=== PATIENT | female | born 1965 | race Caucasian/White ===

== ENCOUNTER 2018-10-08 10:11 | Outpatient (REF) | payer MEDICAID, SELFPAY ==
--- NOTE | 2018-10-08 09:30 | PAPFT_PTH ---
PATIENT: Alicia Gimenez LOC: [facility] U#:[id number] AGE/SX: 53/F ROOM: RE10/08/[address]: ABRAM Senior : 1965 BED: DIS: 10/08/2018 SPEC #: [id number] RECD: 10/08/18 12:43 STATUS: ERNA REJean-Pierre #: [id number] SELAM: 10/08/18 09:[address]: Trixie Santos DEPT: [facility] Cytology RECD BY: Romelia Cabrera ENTERED: 10/08/18 12:44 SP TYPE: PAPFT MARGARETHHR DR: Edward Kurtz DO Tissues: 1 - CX/ENDOCX FOR PAP SMEARS Procedures: PAP THIN PREP/UVM Screening HPV DNA PROBE Comments: [id number]
== END 2018-10-08 10:31 ==
LOC: LBN 10:11
PROVIDERS: PCP Family Medicine; Visit Provider Nurse Practitioner Family
DX: Z12.4 Encounter for screening for malignant neoplasm of cervix (principal); Z11.51 Encounter for screening for human papillomavirus (HPV)
CPT/HCPCS: 88142; 87624

== ENCOUNTER 2018-11-29 00:29 | Outpatient (CLI) | payer MEDICAID, SELFPAY ==
--- NOTE | 2018-11-29 07:44 | DI.MRI_ITS ---
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 Sagittal T 2, axial T 2, axial diffusion weighted, axial FLAIR, axial T 1 and axial GRE pulse sequences were performed. 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 This finding unchanged when compared with the previous examination. The brain is otherwise unremarkable with no evidence of a mass, hemorrhage, region of edema or fluid collection. There are no regions of restricted diffusion. A normal flow void is identified in the visualized portions of the [place] of [place] and cerebral vessels. SUMMARY: A pineal cyst has a maximal diameter today of approximately 8 mm with no appreciable interval change when compared with the prior study of 02/23/16.
== END 2018-11-29 00:49 ==
PROVIDERS: PCP Family Medicine; Visit Provider Family Medicine
DX: D35.4 Benign neoplasm of pineal gland (principal)
CPT/HCPCS: 70551

== ENCOUNTER 2018-11-29 00:29 | Outpatient (CLI) | payer MEDICAID, SELFPAY ==
--- NOTE | 2018-11-29 11:17 | DI.MAMMO_ITS ---
SYMPTOM/DIAGNOSIS: SCREENING, Z12.31 BILATERAL SCREENING MAMMOGRAM: Mammograms were interpreted according to the usual protocol including computer analysis with CAD system, tomosynthesis and C view imaging. Comparison is made with exams from the [facility] dated 2012 through 2016. The breasts are composed of heterogeneously dense fibroglandular tissue, breast density Category C. No suspicious masses or suspicious microcalcifications are seen. There is motion on the left CC view. The patient should return for a repeat left CC view at no additional charge. IMPRESSION: Right breast Category 1 negative. Category C. Left breast category 0. SA ASSESSMENT OF FINDINGS: Incomplete: Needs additional imaging evaluation. Category 0. Patient will receive a letter notifying them of these results. Bi-RADS category C. The breasts are heterogeneously dense, which may obscure small masses.
== END 2018-11-29 00:49 ==
PROVIDERS: PCP Family Medicine; Visit Provider Nurse Practitioner Family
DX: Z12.31 Encounter for screening mammogram for malignant neoplasm of breast (principal); R92.8 Other abnormal and inconclusive findings on diagnostic imaging of breast
CPT/HCPCS: 77063; 77067

== ENCOUNTER 2018-12-06 00:46 | Outpatient (CLI) | payer MEDICAID, SELFPAY ==
--- NOTE | 2018-12-06 10:18 | DI.MAMMO_ITS ---
SYMPTOM/DIAGNOSIS: F/U MAMMO, REPEAT VIEW FOR MOTION REPEAT LEFT CC VIEW: Additional images are interpreted according to the usual protocol including tomosynthesis and 2D imaging. The patient returned for repeat left MLO view due to motion on the initial exam. The repeat view shows no evidence of motion. The breasts are composed of heterogeneously dense fibroglandular tissue. No suspicious masses or suspicious microcalcifications are seen. IMPRESSION: Category 1C, negative mammogram. Yearly screening mammography is recommended. [facility] ASSESSMENT OF FINDINGS: Negative. Category 1. Patient will receive a letter notifying them of these results. Bi-RADS category C. The breasts are heterogeneously dense, which may obscure small masses.
== END 2018-12-06 01:06 ==
PROVIDERS: PCP Family Medicine; Visit Provider Nurse Practitioner Family
DX: Z12.31 Encounter for screening mammogram for malignant neoplasm of breast (principal); R92.8 Other abnormal and inconclusive findings on diagnostic imaging of breast; N64.59 Other signs and symptoms in breast
CPT/HCPCS: 77063; 77067

== ENCOUNTER 2018-12-10 09:56 | Day surgery (SDC) | payer MEDICAID, SELFPAY ==
--- NOTE | 2018-12-10 06:35 | W.COLOREPORT ---
Date of service: 12/10/18 Time of Service: 11:50 Colonoscopy Report Date of procedure: 12/10/18 Pre-op diagnosis general: Colon Cancer Screening Post-op diagnosis procedure note: other (Rectal polyps) Procedure: Colonoscopy with polypectomy by cold forceps Surgeon: Khalida Gordon Anesthesia proc note operative: MAC (Asif Patel,BLACK/ ASA 2) Estimated blood loss (mL): 5 Pathology: other (rectal polyps) Complications: None Disposition: same day Indications: Mrs. Gimenez is a pleasant 53 year old female who was seen in the office for a screening colonoscopy. She had a colonoscopy more than 20 years ago for some GI issues which was normal. Risks, benefits and complications have been reviewed. Complications include but are not limited to bleeding, pain, perforation, missed small lesion/polyp, sore throat, aspiration and adverse reaction to the medications. Questions were entertained and answered to their satisfaction and they wished to proceed. No guarantees were given or implied. Prep: Miralax/Dulcolax Procedure Start Time: 11:50 Procedure End Time: 12:19 Retraction Time: 19 minutes Findings: 3 small rectal polyps Procedure Description: After informed consent was obtained the patient was taken to the procedure room and placed in a left decubitous position. Monitors were applied and a time out was done. The patients name, date of , procedure, allergies to medications and metal in their body was reviewed. The patient was then sedated. Once sedated and comfortable a rectal exam was done. External exam was normal. Internal exam revealed a normal sphincter tone and no palpable masses. The scope was then introduced and retro-flexed. no internal hemorrhoids were identified. The scope was then advanced to the cecum without difficulty. The TI and appendiceal orifice were identified. The prep was adequate. The scope was then slowly retracted over 19 minutes back into the rectum. Polyps were removed in the rectum with cold forceps. The scope was removed and the patient was woken up and taken back to Same day surgery in stable condition. The patient tolerated the procedure well and there were no immediate complications. Follow up: The patient should follow up in 3-5 years unless they develop changes in bowel habits or other new gastrointestinal complaints.
--- NOTE | 2018-12-10 06:37 | W.PM.DSUDISC ---
Discharge Plan Disposition Patient Disposition: HOME Condition: Good Discharge Details Reason For Visit: Colon Cancer Screening Attending Provider: Khalida Gordon Primary Care Provider: Edward Kurtz Home Meds and New Rx's Prescriptions: Continued citalopram 20 mg tablet 20 mg PO DAILY RF: 0 estradiol [Estrace] 0.01 % (0.1 mg/gram) cream 1 g VG .COMPLEX Qty: 42.5 RF: 4 latanoprost [Xalatan] 0.005 % drops 1 drp OP DAILY RF: 0 bupropion HCl 300 mg tablet extended release 24 hr 300 mg PO QAM RF: 0 quetiapine [Seroquel] 300 mg tablet 150 - 450 mg PO HS RF: 0 trazodone 50 mg tablet 50 mg PO HS PRN RF: 0 Symbicort 160-4.5 mcg/actuation HFA aerosol inhaler 1 puff IH BID Qty: 10.2 RF: 12 Proventil HFA 90 mcg/actuation HFA aerosol inhaler 2 puff IH Q4H PRN (Reason: shortness of breath or wheezing) Qty: 6.7 RF: 12 Discontinued bisacodyl [Dulcolax (bisacodyl)] 5 mg tablet,delayed release (DR/EC) 5 mg PO ONCE Qty: 4 RF: 0 polyethylene glycol 3350 17 gram/dose powder 255 g PO ONCE Qty: 255 RF: 0 Discharge Instructions Instructions: Colonoscopy (DC), Colorectal Polyps (DC) Additional Instructions: Findings: 3 polyps Follow up: 3-5 years Please call if you develop: fevers >101.5 Nausea or Vomiting Abdominal pain that is not transient DAY SURGERY UNIT POST COLONOSCOPY INSTRUCTIONS 1. Because there will be medication in your system for the next 24 hours, you may feel a little sleepy. Your coordination will be affected. Therefore: a. Do not drive or operate dangerous equipment for 24 hours. b. Do not drink alcohol beverages for 24 hours (not even beer). c. Plan to go home and rest for the day. 2. Generally there are no restrictions on your activity after a day or so has gone by, but you may feel a bit fatigued for a few days. 3 After you arrive home you may have a light meal and return to a normal diet as you can tolerate it without feeling sick to your stomach. 4. After surgery, you may feel pain or discomfort. This should be only transient, but if it persists please contact your doctor. 5. If there are any questions regarding the findings of your procedure, please feel free to contact your doctor. 6. If you are unable to contact your doctor with a problem, contact the hospital at [phone]. 7. Continue all your regular medications unless directed otherwise. I understand the above instructions and have no questions. Signature of Patient or Responsible Adult Escort Date/Time Name of Responsible Adult Escort Signature of Nurse Date/Time Activity:: Activity as Tolerated Diet:: As Tolerated Discharge Orders Discharge Orders: Discharge Order (Routine); Ordered 12/10/18 Ordered By: Khalida Gordon DS: Diagnosis Discharge Diagnosis (1) S/P colonoscopy: Status: Acute (2) Colorectal polyp detected on colonoscopy: Status: Acute
[2018-12-10 10:21] VITALS: BP 128/92; PULSE 79; RESP 18; TEMP 36.4; O2SAT 97
[2018-12-10] MEDS: Lactated Ringers 1,000 ML 80 ML IV (10:40)
--- NOTE | 2018-12-10 12:16 | BOWEL_PTH ---
PATIENT: Alicia Gimenez LOC: [facility] U#:[id number] AGE/SX: 53/F ROOM: RE12/10/[address]: Khalida Gordon MD : 1965 BED: DIS: 12/10/2018 SPEC #: [id number] RECD: 12/10/18 17:55 STATUS: ERNA REQ #: [id number] SELAM: 12/10/18 12:[address]: Khalida Gordon DEPT: Surgical Specimen RECD BY: Romelia Cabrera ENTERED: 12/10/18 17:56 SP TYPE: Bowel OTHR DR: Edward Kurtz DO Tissues: 1 - BIOPSY BOWEL Procedures: GROSS AND MICRO LEVEL 4 Comments: [id number]
[2018-12-10 13:10] VITALS: BP 151/95; PULSE 71; RESP 16; TEMP 36.6; O2SAT 100
== END 2018-12-10 13:20 | disposition home or self-care (01) ==
LOC: SUR 09:56
PROVIDERS: PCP Family Medicine; Visit Provider Surgery
PROC: 0DJD8ZZ Inspection of Lower Intestinal Tract, Via Natural or Artificial Opening Endoscopic (ICD-10-PCS; CPT 45378; principal; 2018-12-10 11:30)
DX: Z12.11 Encounter for screening for malignant neoplasm of colon (principal); D12.5 Benign neoplasm of sigmoid colon; K63.5 Polyp of colon
CPT/HCPCS: 45380; 88305; J2250

== ENCOUNTER 2019-01-07 23:25 | Emergency (ER) | payer MEDICAID, SELFPAY ==
[2019-01-07 23:28] VITALS: BP 161/128; PULSE 77; RESP 20; TEMP 36.2; O2SAT 97
[2019-01-07 23:37] VITALS: BP 173/97
[2019-01-07 23:53] VITALS: BP 172/77
[2019-01-07 23:58] VITALS: BP 125/78; PULSE 74; O2SAT 97
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
[2019-01-08] MEDS: Prochlorperazine 10 MG TAB 20 MG PO (00:23)
== END 2019-01-08 00:30 | disposition home or self-care (01) ==
PROVIDERS: Emergency Provider Physician Assistant; PCP Family Medicine
DX: F10.10 Alcohol abuse, uncomplicated (principal); R11.2 Nausea with vomiting, unspecified; F41.8 Other specified anxiety disorders
CPT/HCPCS: 99283

== ENCOUNTER 2019-02-15 02:03 | Outpatient (CLI) | payer MEDICAID, SELFPAY ==
[2019-02-15] MEDS: Albuterol HFA 18 GM 200 PUFF INH IH (15:39)
[2019-02-15] MEDS: Inhaler, Assist Device 1 EACH MC (15:39)
--- NOTE | 2019-02-25 14:43 | PFT_ITS ---
PULMONARY FUNCTION TEST REPORT DATE OF SERVICE: February 15, 2019 REQUESTING PROVIDER: Sonya Piedra N.P. Spirometry shows mild obstructive airways disease with significant bronchodilator response. Lung volumes show no evidence of restriction. There is mild to moderate hyperinflation and air trapping. Diffusion capacity elevated. Airways resistance mildly elevated. IMPRESSION: Mild obstructive airways disease with very significant bronchodilator response. This is associated with mild to moderate hyperinflation and air trapping and elevated diffusion capacity. This constellation of findings can be seen in asthma. Clinical correlation recommended. ARUNA/ledy D/
== END 2019-02-15 02:23 ==
PROVIDERS: PCP Family Medicine; Visit Provider Nurse Practitioner
DX: J45.909 Unspecified asthma, uncomplicated (principal); Z87.891 Personal history of nicotine dependence
CPT/HCPCS: 94060; 94150; 94726; 94729

== ENCOUNTER 2019-10-21 10:43 | Outpatient (CLI) | payer MEDICAID, SELFPAY ==
--- NOTE | 2019-10-21 10:28 | DI.RAD_ITS ---
EXAM: XR CHEST 2V PA LATERAL CLINICAL HISTORY: Clinical diagnosis of influenza, r/o pneumonia, J11.1 TECHNIQUE: 2D digital imaging was performed. COMPARISON: No exams were available for comparison FINDINGS: The cardiac and mediastinal contours have a normal appearance. The lungs are well inflated and clear . No infiltrate, effusion or pneumothorax is seen. No spine or rib fracture is identified. IMPRESSION: Negative chest x-ray.
== END 2019-10-21 11:03 ==
PROVIDERS: PCP Family Medicine; Visit Provider Family Medicine
DX: J11.1 Influenza due to unidentified influenza virus with other respiratory manifestations (principal)
CPT/HCPCS: 71046

== ENCOUNTER 2020-04-20 15:33 | Outpatient (REF) | payer MEDICAID, SELFPAY ==
[2020-04-20 20:54] LABS: ALT 40 U/L (14-59); AST 22 U/L (15-37); Albumin 4.1 g/dL (3.4-5.0); Alkaline Phosphatase 112 U/L (46-116); Anion Gap 8.6 mmol/L (3-11); BUN 11 mg/dL (7-18); Bilirubin, Total 0.6 mg/dL (0.2-1.0); CO2 28.4 mmol/L (21.0-32.0); CREATININE 0.84 mg/dL (0.55-1.02); Calcium 9.1 mg/dL (8.5-10.1); Calculated LDL 130 mg/dL (<100); Chloride 102 mmol/L (98-107); Cholesterol 235 mg/dL (<200); Glucose 86 mg/dL (74-106); HDL Cholesterol 94 mg/dL (40-60); Potassium 3.7 mmol/L (3.5-5.1); Sodium 139 mmol/L (136-145); Total Protein 7.5 g/dL (6.4-8.2); Triglyceride 57 mg/dL (<150)
== END 2020-04-20 15:53 ==
LOC: LBN 15:33
PROVIDERS: PCP Family Medicine; Visit Provider Family Medicine
DX: Z13.220 Encounter for screening for lipoid disorders (principal)
CPT/HCPCS: 80053; 80061

== ENCOUNTER 2020-06-08 09:09 | Outpatient (CLI) | payer MEDICAID, SELFPAY ==
[2020-06-10 08:53] LABS: SARS-CoV-2 RNA Undetected (Undetected); SARS-CoV-2 Specimen Source Nasopharynx
== END 2020-06-08 09:29 ==
PROVIDERS: PCP Family Medicine; Visit Provider Student in an Organized Health Care Education/Training Program
DX: Z20.828 Contact with and (suspected) exposure to other viral communicable diseases (principal)
CPT/HCPCS: U0003

== ENCOUNTER 2020-09-18 04:16 | Outpatient (CLI) | payer MEDICAID, SELFPAY ==
[2020-09-20 10:04] LABS: SARS-CoV-2 RNA Not Detected (NotDetected); SARS-CoV-2 RNA Source Nasal/Nares
== END 2020-09-18 04:36 ==
PROVIDERS: PCP Family Medicine; Visit Provider Student in an Organized Health Care Education/Training Program
DX: Z11.59 Encounter for screening for other viral diseases (principal); Z01.818 Encounter for other preprocedural examination
CPT/HCPCS: U0003

== ENCOUNTER 2020-09-22 06:15 | Day surgery (SDC) | payer MEDICAID, SELFPAY ==
[2020-09-22 06:20] VITALS: BP 117/72; PULSE 82; RESP 18; TEMP 36.6; O2SAT 97
[2020-09-22] MEDS: Lactated Ringers 1,000 ML 80 ML IV (06:54)
--- NOTE | 2020-09-22 07:07 | PDOC.DSDIS_ITS ---
Discharge Plan Disposition Patient Disposition: HOME Condition: Good Discharge Details Reason For Visit: Left carpal tunnel syndrome Attending Provider: Mook Johnson Primary Care Provider: Edward Kurtz Home Meds and New Rx's Prescriptions: New acetaminophen 500 mg tablet 500 mg PO Q6H PRN (Reason: pain) Qty: 60 RF: 2 ibuprofen 600 mg tablet 600 mg PO TID PRN (Reason: pain) Qty: 60 RF: 2 hydrocodone-acetaminophen 5-325 mg tablet 1 tab PO Q6H PRN (Reason: severe pain) Qty: 4 RF: 0 Continued citalopram 20 mg tablet 20 mg PO DAILY RF: 0 albuterol sulfate [ProAir HFA] 90 mcg/actuation HFA aerosol inhaler 2 puff IH Q6H PRN (Reason: shortness of breath or wheezing) Qty: 8.5 RF: 6 latanoprost [Xalatan] 0.005 % drops 1 drp OP DAILY RF: 0 estradiol [Estrace] 0.01 % (0.1 mg/gram) cream 1 g VG .COMPLEX Qty: 42.5 RF: 4 Symbicort 160-4.5 mcg/actuation HFA aerosol inhaler 1 puff IH BID Qty: 10.2 RF: 12 bupropion HCl 300 mg tablet extended release 24 hr See Rx Instructions PO QAM RF: 0 quetiapine [Seroquel] 300 mg tablet See Rx Instructions PO QHS RF: 0 Discharge Instructions Stand Alone Forms: [place] Release Referrals: Mook Johnson MD [ [facility] ST[facility]FF PHYSICIAN] - Activity:: Elevate Remove Dressings/Wound Care:: 72 hours Shower/Bathe:: 72 hours Diet:: As Tolerated Discharge Orders Discharge Orders: Discharge Order (Routine); Ordered 09/22/20 Ordered By: Geeta Mello DS: Diagnosis Discharge Diagnosis (1) Left carpal tunnel syndrome: Status: Acute
[2020-09-22] MEDS: ceFAZolin 2 GM/50 ML BAG IVPB (07:24)
[2020-09-22] MEDS: Sodium Bicarbonate 50 MEQ/50 ML VIAL (07:35)
[2020-09-22 08:10] VITALS: BP 114/74; PULSE 84; RESP 18; TEMP 36.7; O2SAT 94
--- NOTE | 2020-09-22 09:39 | ROE_ITS ---
Date of service: 09/22/20 Time of Service: 07:39 Operative Note Operative Note DATE OF PROCEDURE: 09/22/20 PRE-OP DIAGNOSIS: Left Carpal Tunnel Syndrome POST-OP DIAGNOSIS: same PROCEDURE: Left Endoscopic Carpal Tunnel Release SURGEON: Mook Johnson ANESTHESIA: MAC ESTIMATED BLOOD LOSS: 0 PATHOLOGY: none sent TOURNIQUET TIME: 6 COMPLICATIONS: None Patient was transported to: same day Patient's condition: stable Indications: I have seen Alicia in clinic for symptoms of carpal tunnel syndrome. The numbness, tingling, and pain limited function. Clinical exam findings with nerve conduction tests confirmed the diagnosis of carpal tunnel syndrome. Nonoperative measures such as bracing, time, activity modifications had been tried but disability and pain persisted. I discussed carpal tunnel release with the patient. I reviewed the risks of the procedure to include, but not limited to, bleeding, infection, pain, stiffness, incomplete release, damage to nerves or vessels, persistent numbness, recurrence. Despite these risks, the patient elected to proceed. Findings: There was tightened carpal tunnel. This was dilated and released successfully with the endoscopic with increased space within the tunnel. The antebrachial fascia was released proximally freeing the median nerve at the wrist. Procedure Description: Alicia was greeted in the preoperative holding area where the correct side was identified and marked. The consent was reviewed with the patient and signed. The history and physical was updated. All questions were answered. She was taken back to the operating room. The patient was placed into the supine position on the operating room table with the left arm on an arm board. A nonsterile tourniquet was placed high onto the arm. All bony prominences were well padded. Prophylactic antibiotics in the form of Cefazolin were administered. The left arm was then prepped with Chloraprep and draped in a standard fashion with stockinette and extremity drape. A timeout to confirm correct identity, side and site, procedure, allergies, anesthesia, and medical concerns was performed. The surgical site was marked in the volar wrist creases in line with the radial border of the fourth ray. This area was anesthetized with approximately 6cc of 1% Lidocaine. The limb was then exsanguinated with an Esmarch. The skin was incised with a 15 blade, approximately 1cm. The skin only was cut and the deeper tissue was dissected bluntly with a tenotomy scissor, avoiding passing nerve and venous structures. The fascia was penetrated and opened bluntly. A two-prong skin hook was placed under this proximal fascial edge. A series of hamate finders were used to identify and dilate the carpal tunnel. Synovial elevator was used to free synovial attachments to the underside of the transverse carpal ligament. My thumb was kept in the palm to valarie the distal extent of the carpal tunnel and correctly position the hand. The Microaire endoscope was inserted without difficulty and without resistance. Excellent v isualization showed horizontally running fibers of the transverse carpal ligament (TCL). The distal extent of the TCL was visualized and the end of the scope palpated with the thumb. The blade was elevated and withdrawn from distal to proximal. The TCL was split into two flaps. The endoscope was reinserted to confirm complete release and any remnant ligament was incised. The scope was withdrawn and the proximal aspect of the carpal tunnel was grossly inspected and appeared release with the median nerve visible. The antebrachial fascia at the level of the wrist was then freed from the overlying skin and then the underlying median nerve with blunt dissection. This was transected longitudinally for about 3cm proximal to the wrist incision. The wound was then irrigated with easy flow of irrigant distally and proximally. The incision was closed with a single 4-0 Nylon suture. The wound was dressed with Xeroform, Gauze, Kerlix and Jason. The tourniquet was deflated with the initial dressing and held with some pressure. Blood flow returned easily to all digits with capillary refill less than 2 seconds. The patient tolerated the procedure well and was returned to the Same Day Surgery area in a stable condition suffering no known complication.
== END 2020-09-22 08:25 | disposition home or self-care (01) ==
PROVIDERS: PCP Family Medicine; Visit Provider Student in an Organized Health Care Education/Training Program
PROC: 01N54ZZ Release Median Nerve, Percutaneous Endoscopic Approach (ICD-10-PCS; CPT 29848; principal; 2020-09-22 07:30)
DX: G56.02 Carpal tunnel syndrome, left upper limb (principal)
CPT/HCPCS: 29848; J0690; J2001; L3650

== ENCOUNTER 2020-12-05 10:04 | Emergency (ER) | payer MEDICAID, SELFPAY ==
[2020-12-05 10:07] VITALS: BP 187/88; PULSE 82; RESP 20; TEMP 36.6; O2SAT 99
--- NOTE | 2020-12-05 10:15 | DI.RAD_ITS ---
EXAM: XR RIBS RT W PA LAT CHEST CLINICAL HISTORY: R anterior rib pain TECHNIQUE: 2D digital imaging was performed. COMPARISON: CR XR CHEST 2V PA LATERAL from 10/21/2019 FINDINGS: Heart size is normal. The lungs appear clear. No pneumothorax is seen. Three views of the right r ibs were performed. The lower ribs are suboptimally penetrated. No fractures are visible. IMPRESSION: Negative chest and right ribs.
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
--- NOTE | 2020-12-05 10:48 | DI.VRAD_ITS ---
PROCEDURE INFORMATION: Exam: XR Right Ribs Exam date and time: 12/05/2020 10:21 AM Age: 55 years old Clinical indication: Other: RT ant rib pain. Marked with bb TECHNIQUE: Imaging protocol: XR Right ribs. Views: 2 views. COMPARISON: CR XR CHEST 2V PA LATERAL 10/21/2019 10:23 AM FINDINGS: Bones/joints: Normal. Soft tissues: Normal. IMPRESSION: No acute findings. PROCEDURE INFORMATION: Exam: XR Chest, 2 Views Exam date and time: 12/05/2020 10:21 AM Age: 55 years old Clinical indication: Other: RT ant rib pain. Marked with bb TECHNIQUE: Imaging protocol: XR of the chest Views: 2 views. COMPARISON: CR XR CHEST 2V PA LATERAL 10/21/2019 10:23 AM FINDINGS: Lungs: Unremarkable. No consolidation. Pleural spaces: Unremarkable. No pleural effusion. No pneumothorax. Heart/Mediastinum: Unremarkable. No cardiomegaly. Bones/joints: Unremarkable. IMPRESSION: No acute findings. Dictated and Authenticated by: Fidel Nelson MD. Ordering:LEMUEL Almeida MD
== END 2020-12-05 10:58 | disposition home or self-care (01) ==
PROVIDERS: Emergency Provider Emergency Medicine; PCP Family Medicine
DX: S20.211A Contusion of right front wall of thorax, initial encounter (principal); V00.311A Fall from snowboard, initial encounter; Y93.23 Activity, snow (alpine) (downhill) skiing, snowboarding, sledding, tobogganing and snow tubing
CPT/HCPCS: 99283; 71046; 71100

== ENCOUNTER 2021-03-02 10:33 | Outpatient (REF) | payer MEDICAID, SELFPAY ==
--- NOTE | 2021-03-02 09:40 | PAPFT_PTH ---
PATIENT: Alicia Gimenez LOC: Re U#:[id number] AGE/SX: 55/F ROOM: RE03/02/[address]: ABRAM Senior : 1965 BED: DIS: 03/02/2021 SPEC #: [id number] RECD: 03/02/21 13:03 STATUS: ERNA REJean-Pierre #: [id number] SELAM: 03/02/21 09:[address]: Trixie Santos DEPT: [facility] Cytology RECD BY: Romelia Cabrera ENTERED: 03/02/21 13:03 SP TYPE: PAPFT OTHR DR: Edward Kurtz, Tissues: 1 - CX/ENDOCX FOR PAP SMEARS Procedures: PAP THIN PREP/[facility] Screening HPV DNA PROBE Comments: [id number]
== END 2021-03-02 10:34 | disposition home or self-care (01) ==
LOC: LBN 10:33
PROVIDERS: PCP Family Medicine; Visit Provider Nurse Practitioner Family
DX: Z12.4 Encounter for screening for malignant neoplasm of cervix (principal); Z11.51 Encounter for screening for human papillomavirus (HPV)
CPT/HCPCS: 88142; 87624

== ENCOUNTER 2021-03-11 02:25 | Outpatient (CLI) | payer MEDICAID, SELFPAY ==
--- NOTE | 2021-03-11 | DI.MAMMO_ITS ---
Exam(s) MAMMO SCREENING EXAM: MAMMO SCREENING CLINICAL HISTORY: SCREENING,Z12.39 TECHNIQUE: Bilateral full field digital CC and MLO mammographic images were obtained with 3D tomosyn thesis and utilizing computer aided detection (CAD). COMPARISON: Available for comparison. FINDINGS: Masses/Architectural Distortion: None seen. Microcalcifications: No suspicious pleomorphic-type are seen. Skin Thickening/Nipple Retraction: None. IMPRESSION: 1. No significant interval change with no specific features of malignancy noted. 2. Unless there is more urgent need, screening mammography is recommended, as per [employer] guidelines. BI-RADS Category 1 - Negative Breast Density - Category C - Heterogeneously dense Breast density category C or D implies that the patient has dense breast tissue. Dense breast tissue is very common and is not abnormal but dense breast tissue can make it harder to find cancer on a ma mmogram. Also, dense breast tissue may increase their breast cancer risk. This information about the result of the mammogram report was provided to the patient to raise their awareness. Use this report when you speak with the patient about their risks for breast cancer, which includes their family hist ory. At that time, you may recommend for more screening tests (Ultrasound or MRI) as they might be us eful based on their risk. A negative radiographic report should not delay biopsy if a dominant or clinically suspicious mass is present. Up to ten percent of cancers are not identified on mammography. A negative report may reinforce clinical impression. Adenosis and dense breasts may obscure an underlying neoplasm. False positive reports average 6 to 10%. Patient will receive a letter notifying them of these results.
== END 2021-03-11 02:45 ==
PROVIDERS: PCP Family Medicine; Visit Provider Nurse Practitioner Family
DX: Z12.31 Encounter for screening mammogram for malignant neoplasm of breast (principal)
CPT/HCPCS: 77063; 77067

== ENCOUNTER 2021-06-25 02:33 | Outpatient (CLI) | payer MEDICAID, SELFPAY ==
[2021-06-25 09:45] LABS: Abs Immature Grans 0.01 10^3/uL (0.0-0.06); Absolute Basophil Count 0.03 10^3/uL (0.0-0.2); Absolute Eosinophil Count 0.03 10^3/uL (0.0-0.7); Absolute Lymphocyte Count 1.27 10^3/uL (1.2-3.4); Absolute Neutrophil Count 2.77 10^3/uL (1.2-6.7); Basophils % 0.7; Eosinophils % 0.7; HCT 40.5 % (36.0-46.0); HGB 13.8 g/dL (11.2-15.7); Immature Grans % 0.2; Lymphocytes % 27.5; MCH 31.4 pg (27.0-33.0); MCHC 34.1 % (32.0-36.0); MPV 8.8 fL (8.0-11.0); Monocytes % 10.8; Neutrophils % 60.1; Nucleated RBC 0 %; Platelet Count 234 10^3/uL (130-400); RDW 13.7 % (11.7-14.6); WBC 4.61 10^3/uL (4.4-10.8)
[2021-06-25 10:10] LABS: Hemoglobin A1C 5.1 % (<5.7)
[2021-06-25 11:19] LABS: ALT 18 U/L (14-59); AST 12 U/L (15-37); Alkaline Phosphatase 117 U/L (46-116); Anion Gap 10.3 mmol/L (3-11); BUN 16 mg/dL (7-18); Bilirubin, Total 0.6 mg/dL (0.2-1.0); CO2 27.7 mmol/L (21.0-32.0); CREATININE 0.8 mg/dL (0.55-1.02); Calcium 9.1 mg/dL (8.5-10.1); Calculated LDL 127 mg/dL (<100); Chloride 103 mmol/L (98-107); Cholesterol 253 mg/dL (<200); Glucose 92 mg/dL (74-106); HDL Cholesterol 116 mg/dL (40-60); Magnesium 2.1 mg/dL (1.8-2.4); Potassium 4.1 mmol/L (3.5-5.1); Sodium 141 mmol/L (136-145); TSH 1.49 uIU/mL (0.36-3.74); Total Protein 7.3 g/dL (6.4-8.2); Triglyceride 54 mg/dL (<150); Vitamin B12 410 pg/mL (193-986)
[2021-06-25 11:20] LABS: Folate > 20.0 ng/mL (8.6-20.0)
[2021-06-25 11:36] LABS: C-Reactive Protein 0.08 mg/dL (0.0-0.3); FREE T4 0.78 ng/dL (0.76-1.46)
[2021-06-25 16:17] LABS: T3,Free 3.4 pg/mL (2.8-5.3)
[2021-06-28 05:22] LABS: Vitamin D 25 Total 59.1 ng/mL (30-100)
== END 2021-06-25 02:34 | disposition home or self-care (01) ==
LOC: LBO 02:34
PROVIDERS: PCP Family Medicine; Visit Provider Psychiatry & Neurology Psychiatry
DX: F31.0 Bipolar disorder, current episode hypomanic (principal); Z79.899 Other long term (current) drug therapy
CPT/HCPCS: 36415; 80053; 80061; 82306; 82607; 82746; 83036; 83735; 84439; 84443; 84481; 85025; 86140

== ENCOUNTER → 2022-06-10 00:14 | Outpatient (CLI) | payer MEDICAID, SELFPAY ==
--- NOTE | 2022-06-10 12:15 | DI.MAMMO_ITS ---
Exam(s) MAMMO SCREENING EXAM: MAMMO SCREENING CLINICAL HISTORY: screening TECHNIQUE: Bilateral full field digital CC and MLO mammographic images were obtained with 3D tomosyn thesis and utilizing computer aided detection (CAD). COMPARISON: Available for comparison. FINDINGS: Masses/Architectural Distortion: None seen. Microcalcifications: No suspicious pleomorphic-type are seen. Skin Thickening/Nipple Retraction: None. IMPRESSION: 1. No significant interval change with no specific features of malignancy noted. 2. Unless there is more urgent need, screening mammography is recommended, as per [employer] guidelines. BI-RADS Category 1 - Negative Breast Density - Category C - Heterogeneously dense Breast density category C or D implies that the patient has dense breast tissue. Dense breast tissue is very common and is not abnormal but dense breast tissue can make it harder to find cancer on a ma mmogram. Also, dense breast tissue may increase their breast cancer risk. This information about the result of the mammogram report was provided to the patient to raise their awareness. Use this report when you speak with the patient about their risks for breast cancer, which includes their family hist ory. At that time, you may recommend for more screening tests (Ultrasound or MRI) as they might be us eful based on their risk. A negative radiographic report should not delay biopsy if a dominant or clinically suspicious mass is present. Up to ten percent of cancers are not identified on mammography. A negative report may reinforce clinical impression. Adenosis and dense breasts may obscure an underlying neoplasm. False positive reports average 6 to 10%. Patient will receive a letter notifying them of these results.
== END ==
PROVIDERS: PCP Family Medicine; Visit Provider Nurse Practitioner Family
DX: Z12.31 Encounter for screening mammogram for malignant neoplasm of breast (principal)
CPT/HCPCS: 77063; 77067

== ENCOUNTER 2023-02-14 11:48 | Emergency (ER) | payer MEDICAID, SELFPAY ==
[2023-02-14 11:54] VITALS: BP 126/98; PULSE 100; RESP 18; O2SAT 96
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
[2023-02-14] MEDS: Lidocaine 2% Jelly 6 ML SYR TP (12:19)
[2023-02-14] MEDS: Silver sulfaDIAZINE 1% 25 GM TUBE TP (12:36)
== END 2023-02-14 12:42 | disposition home or self-care (01) ==
PROVIDERS: Emergency Provider Registered Nurse Emergency; PCP Family Medicine
DX: T21.22XA Burn of second degree of abdominal wall, initial encounter (principal); X19.XXXA Contact with other heat and hot substances, initial encounter; J45.909 Unspecified asthma, uncomplicated; Z86.16 Personal history of COVID-19; Z79.51 Long term (current) use of inhaled steroids
CPT/HCPCS: 99283; 99284

== ENCOUNTER 2023-04-06 03:25 | Outpatient (CLI) | payer MEDICAID, SELFPAY ==
--- NOTE | 2023-04-06 07:45 | DI.US_ITS ---
Exam(s) US SOFT TISS ABD WALL/LOW BACK EXAM: US SOFT TISS ABD WALL/LOW BACK CLINICAL HISTORY: Likely pseudohernia,? MASS, ABD MASS, R19.00. TECHNIQUE: Ultrasound was performed using standard protocol. COMPARISON: No exams were available for comparison FINDINGS: Ultrasound images submitted for interpretation from area of apparent clinical concern left side of th e abdomen-pelvis. Images were performed both without and with Valsalva maneuver. No evidence of abdominal wall hernia at this level. No fluid collection. No solid mass seen. IMPRESSION: No significant ultrasound findings in the area of concern in the left lower quadrant. If clinically indicated further study with other imaging modality such as CT scan can be performed. DATA REPOSITORY:
== END 2023-04-06 03:45 ==
LOC: DI 03:25
PROVIDERS: PCP Family Medicine; Visit Provider Family Medicine
DX: R19.00 Intra-abdominal and pelvic swelling, mass and lump, unspecified site (principal)
CPT/HCPCS: 76705

== ENCOUNTER 2023-06-13 04:09 | Outpatient (CLI) | payer MEDICAID, SELFPAY ==
[2023-06-13] MEDS: Albuterol HFA 18 GM 200 PUFF INH IH (14:49)
[2023-06-13] MEDS: Inhaler, Assist Device 1 EACH MC (14:50)
--- NOTE | 2023-06-20 07:26 | W.PFT ---
Date of service: 06/13/23 Time of Service: 13:02 Pulmonary Function Test Result Indications: ACOS Interpretation Spirometry: There is mild airflow limitation. There was a significant bronchodilator response. Lung Volumes: There is hyperinflation and air trapping Diffusion Capacity: Elevated diffusion, which can be seen in asthma. Airway Pressure: Increased airways resistance. Impression There is mild airflow obstruction with a bronchodilator response, hyperinflation, increased airways resistance and an elevated diffusion. This likely represents severe asthma with airway remodelling or possibly asthma with mild COPD. Note: When compared to 2019, her lung function has improved overall Clinical Correlation therefore is recommended.
== END 2023-06-13 04:10 | disposition home or self-care (01) ==
LOC: RT 04:09
PROVIDERS: PCP Family Medicine; Visit Provider Physician Assistant Surgical
DX: J44.9 Chronic obstructive pulmonary disease, unspecified (principal)
CPT/HCPCS: 94060; 94726; 94729

== ENCOUNTER → 2023-09-06 03:24 | Outpatient (CLI) | payer MEDICAID, SELFPAY ==
--- NOTE | 2023-09-06 13:54 | DI.MAMMO_ITS ---
Exam(s) MAMMO SCREENING EXAM: MAMMO SCREENING CLINICAL HISTORY: screening,z12.39 TECHNIQUE: Mammograms were interpreted according to the usual protocol including computer analysis w e[employer] CAD system, tomosynthesis and C-view imaging. COMPARISON: 2012 through 2021 FINDINGS: The breasts are composed of heterogeneously dense fibroglandular densities, Breast Density category C . No suspicious masses or suspicious microcalcifications are seen. No skin thickening or abnormal axillary lymph nodes are seen. There has been no significant change from prior exams. IMPRESSION: BI-RADS Category 1, Negative mammogram. Yearly screening mammography is recommended. Breast Density Category C, heterogeneously Dense. The mammogram demonstrates the patient's breast tissue is dense. Dense breast tissue is very common a nd is not abnormal but dense breast tissue can make it harder to find cancer on a mammogram. Also, de nse breast tissue may increase breast cancer risk. This information about the result of the mammogram report was provided to the patient to raise their awareness. Use this report when you speak with the patient about their risks for breast cancer, which includes their family history. At that time, you may recommend additional screening tests (Ultrasound or MRI) as they might be useful based on their r isk. A negative radiographic report should not delay biopsy if a dominant or clinically suspicious mass is present. Up to ten percent of cancers are not identified on mammography. A negative report may reinforce clinical impression. Adenosis and dense breasts may obscure an underlying neoplasm. False positive reports average 6 to 10%.
== END ==
PROVIDERS: PCP Family Medicine; Visit Provider Nurse Practitioner Women's Health
DX: Z12.31 Encounter for screening mammogram for malignant neoplasm of breast (principal); R92.333 Mammographic heterogeneous density, bilateral breasts
CPT/HCPCS: 77063; 77067

== ENCOUNTER 2024-09-18 14:38 | Outpatient (REF) | payer MEDICAID, SELFPAY ==
--- NOTE | 2024-09-18 13:20 | PAPFT_PTH ---
PATIENT: Alicia Gimenez LOC: [facility] U#:[id number] AGE/SX: 59/F ROOM: RE09/18/[address]: Yuliana Yang NP : 1965 BED: DIS: 09/18/2024 SPEC #: [id number] RECD: 09/18/24 17:05 STATUS: ERNA CALVO #: [id number] SELAM: 09/18/24 13:[address]: Yuliana Yang NP DEPT: [facility] Cytology RECD BY: Romelia Cabrera ENTERED: 09/18/24 17:05 SP TYPE: PAPFT OTHR DR: Edward Kurtz, DO Tissues: 1 - CX/ENDOCX FOR PAP SMEARS Procedures: PAP THIN PREP/[facility] Screening HPV DNA PROBE Comments: [id number] (HPV 16 & 18/45)
== END 2024-09-18 14:39 | disposition home or self-care (01) ==
LOC: LBN 14:38
PROVIDERS: PCP Family Medicine; Visit Provider Nurse Practitioner Women's Health
DX: Z11.51 Encounter for screening for human papillomavirus (HPV) (principal); Z01.419 Encounter for gynecological examination (general) (routine) without abnormal findings
CPT/HCPCS: 88142; 87624

== ENCOUNTER 2024-09-19 20:37 | Emergency (ER) | payer MEDICAID, SELFPAY ==
[2024-09-19 20:44] VITALS: BP 178/107; PULSE 80; RESP 20; TEMP 36.1; O2SAT 99
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
[2024-09-19 21:13] LABS: Bilirubin Negative (Negative); Blood Moderate (Negative); Clarity Clear (Clear); Glucose Negative (Negative); Ketones Negative (Negative); Leukocyte Esterase Negative (Negative); Nitrite Negative (Negative); Specific Gravity <= 1.005 (1.005-1.025); Urobilinogen 0.2 mg/dL (Up to 0.2); pH 5.5 (5-8)
[2024-09-19] MEDS: LORazepam 1 MG TAB PO (21:20)
[2024-09-19] MEDS: QUEtiapine 100 MG TAB 150 MG PO (21:20)
[2024-09-19 21:23] LABS: Bacteria Negative HPF (Negative); C & S Indicated? No; Crystals Negative HPF (Negative); Epithelial Cells Rare HPF (Negative); Mucus Trace (Negative); WBC Negative HPF (0-5)
[2024-09-19 21:25] LABS: *AMPHETAMINES SCREEN URINE Negative (Negative); *BARBITURATES SCREEN URINE Negative (Negative); *BENZODIAZEPINES SCREEN URINE Negative (Negative); Cannabinoids THC Positive (Negative); Cocaine Screen,Urine Negative (Negative); METHADONE URINE SCREEN Negative (Negative); OPIATES URINE SCREEN Negative (Negative)
[2024-09-19 21:32] LABS: Tricyclic Antidepressants Negative (Negative)
[2024-09-19 21:50] LABS: Abs Immature Grans 0.06 10^3/uL (0.0-0.06); Absolute Basophil Count 0.04 10^3/uL (0.0-0.2); Absolute Lymphocyte Count 1.23 10^3/uL (1.2-3.4); Absolute Neutrophil Count 11.35 10^3/uL (1.2-6.7); Basophils % 0.3 %; HCT 43.9 % (36.0-46.0); HGB 15.1 g/dL (11.2-15.7); Immature Grans % 0.5 %; Lymphocytes % 9.3 %; MCH 30.8 pg (27.0-33.0); MCHC 34.4 % (32.0-36.0); MCV 90 fL (80-95); MPV 8.9 fL (8.0-11.0); Monocytes % 3.8 %; Neutrophils % 86.1 %; Platelet Count 309 10^3/uL (130-400); RDW 13.6 % (11.7-14.6); RDW-SD 44.5 fL; WBC 13.18 10^3/uL (4.4-10.8)
[2024-09-19 22:02] VITALS: BP 159/76; PULSE 92
[2024-09-19 22:23] LABS: ALT 22 U/L (14-59); AST 19 U/L (15-37); Albumin 4.6 g/dL (3.4-5.0); Alkaline Phosphatase 121 U/L (46-116); Anion Gap 13.6 mmol/L (3-11); BUN 22 mg/dL (7-18); CO2 22.4 mmol/L (21.0-32.0); CREATININE 0.9 mg/dL (0.55-1.02); Calcium 9.8 mg/dL (8.5-10.1); Chloride 100 mmol/L (98-107); Estimated GFR 73.19 (mL/min/1.73m2); Glucose 122 mg/dL (74-106); Lipase 67 U/L (16-77); Potassium 4.4 mmol/L (3.5-5.1); Sodium 136 mmol/L (136-145); TSH (W/Ref FT4) 0.85 uIU/mL (0.36-3.74); Total Protein 8.7 g/dL (6.4-8.2)
[2024-09-19 22:26] LABS: ETHANOL BLOOD < 3.0 mg/dL (<10)
[2024-09-19 22:34] LABS: Salicylate 4.4 mg/dL (<2.8)
[2024-09-19 22:36] LABS: Acetaminophen < 2 ug/mL (10-30)
[2024-09-19 22:55] LABS: COVID-19 PCR Negative (Negative); Influenza A PCR Negative (Negative); Influenza B PCR Negative (Negative); RSV PCR Negative (Negative); Source Nasopharynx
[2024-09-19] MEDS: OLANZapine ODT 5 MG TAB 10 MG PO (23:11)
[2024-09-20] MEDS: LORazepam 1 MG TAB 2 MG PO (02:57)
[2024-09-20 07:16] VITALS: BP 149/87; PULSE 82; RESP 20; TEMP 36.5; O2SAT 97
--- NOTE | 2024-09-20 08:10 | ED.PROG_ITS ---
Date of service: 09/20/24 Time of Service: 08:15 Medical Decision Making The patient is a 59-year-old female with a past medical history significant for bipolar disorder, recently stopped allopathic medications and began using marijuana for symptom control, presents to the emergency department this evening with bonnie. Symptoms improved with a combination of antipsychotic and benzodiazepine medications in the emergency room. The patient is a voluntary inpatient bed placement through [facility]. Quality:[facility] Health Related Social Needs: No Data to Display Sign Out Sign Out Data: Sign Out Comment: Patient awaiting [facility] eval- highly manic, endorsed SI no plan- has been abusing THC off her bipolar meds. Last updated by John Ramos PA at 09/19/24 21:55 Discharge Plan Discharge Details Chief Complaint: PsychEval Primary Care Provider: Edward Kurtz ED Provider: Kvng Harris Home Meds and New Rx's Prescriptions: No Action escitalopram oxalate 10 mg tablet 10 mg PO DAILY estradiol [Estrace] 0.01 % (0.1 mg/gram) cream 1 g VG .COMPLEX Qty: 42.5 4RF Rx Instructions: 1 g VG twice weekly brimonidine [Alphagan P] 0.1 % drops 1 drp ophthalmic (eye) BID Rx Instructions: administer approximately 8 hours apart acamprosate 333 mg tablet,delayed release (DR/EC) 333 mg PO BID Qty: 180 3RF Rx Instructions: administer with mid-day and evening meals prednisone 20 mg tablet 40 mg PO DAILY Qty: 10 0RF Rx Instructions: Take 2 tablets once a day for 5 days. latanoprost [Xalatan] 0.005 % drops 1 drp OP DAILY bupropion HCl 150 mg tablet extended release 24 hr 150 mg PO QAM Rx Instructions: per note dated 07/16/21 and confirmed w/ Eliseo Ennis [facility] quetiapine [Seroquel] 100 mg tablet 150 mg PO DAILY Rx Instructions: per note dated 07/16/21 [facility] Symbicort 160-4.5 mcg/actuation HFA aerosol inhaler 1 puff IH BID Qty: 10.2 12RF losartan 25 mg tablet 25 mg PO DAILY Qty: 90 3RF albuterol sulfate [ProAir HFA] 90 mcg/actuation HFA aerosol inhaler 2 puff IH Q6H PRN (Reason: shortness of breath or wheezing) Qty: 8.5 6RF
[2024-09-20] MEDS: Escitalopram 10 MG TAB PO (09:19)
[2024-09-20] MEDS: buPROPion-XL 150 MG TABCR PO (09:19)
--- NOTE | 2024-09-20 13:36 | W.EDPROG ---
Date of service: 09/20/24 Time of Service: 13:36 Medical Decision Making Care was signed out by Dr. Lo, please see his documentation regarding earlier ED course. Patient noted to be medically clear at time of signout. Plan at signout was to await psychiatric treatment placement for acute manic episode with suicidal thoughts. I received call from Dr. Jayson Vick at [facility], discussed ED presentation and course, he will accept the patient in transfer. Patient agreeable to transfer per nursing. Lab Data Lab results reviewed: Yes I reviewed the patient's lab results. Labs: Laboratory Tests Range/Units 09/19/24 09/19/24 09/19/24 20:52 21:01 21:41 WBC (4.4-10.8) 10^3/uL 13.18 H RBC (3.93-5.22) 10^6/uL 4.90 Hgb (11.2-15.7) g/dL 15.1 Hct (36.0-46.0) % 43.9 MCV (80-95) fL 90 MCH (27.0-33.0) pg 30.8 MCHC (32.0-36.0) % 34.4 RDW (11.7-14.6) % 13.6 Plt Count (130-400) 10^3/uL 309 MPV (8.0-11.0) fL 8.9 Immature Gran % % 0.5 Neutrophils % % 86.1 Lymphocytes % % 9.3 Monocytes % % 3.8 Eosinophils % % 0.0 Basophils % % 0.3 Nucleated RBC % (0.0-0.3) % 0.0 Absolute Neutrophils (1.2-6.7) 10^3/uL 11.35 H Absolute Lymphocytes (1.2-3.4) 10^3/uL 1.23 Absolute Monocytes (0.1-0.8) 10^3/uL 0.50 Absolute Eosinophils (0.0-0.7) 10^3/uL 0.00 Absolute Basophils (0.0-0.2) 10^3/uL 0.04 Sodium (136-145) mmol/L 136 Potassium (3.5-5.1) mmol/L 4.4 Chloride (98-107) mmol/L 100 Carbon Dioxide (21.0-32.0) mmol/L 22.4 Anion Gap (3-11) mmol/L 13.6 H BUN (7-18) mg/dL 22 H Creatinine (0.55-1.02) mg/dL 0.9 Est GFR (CKD-EPI 2020) (mL/min/1.73m2) 73.19 Glucose (74-106) mg/dL 122 H Calcium (8.5-10.1) mg/dL 9.8 Total Bilirubin (0.2-1.0) mg/dL 0.50 AST (15-37) U/L 19 ALT (14-59) U/L 22 Alkaline Phosphatase (46-116) U/L 121 H Total Protein (6.4-8.2) g/dL 8.7 H Albumin (3.4-5.0) g/dL 4.6 Lipase (16-77) U/L 67 TSH (0.36-3.74) uIU/mL 0.85 Urine Color (Yellow) Yellow Cancelled Urine Clarity (Clear) Clear Cancelled Urine pH (5-8) 5.5 Cancelled Ur Specific [place] (1.005-1.025) <= 1.005 Cancelled Urine Protein (Neg-Trace) mg/dL Negative Cancelled Urine Ketones (Negative) mg/dL Negative Cancelled Urine Blood (Negative) Moderate H Cancelled Urine Nitrite (Negative) Negative Cancelled Urine Bilirubin (Negative) Negative Cancelled Urine Urobilinogen (Up to 0.2) mg/dL 0.2 Cancelled Ur Leukocyte Esterase (Negative) Negative Cancelled Urine RBC (0-2) HPF 3-5 H Urine WBC (0-5) HPF Negative Ur Epithelial Cells (Negative) HPF Rare Urine Crystals (Negative) HPF Negative Urine Bacteria (Negative) HPF Negative Urine Mucus (Negative) Trace Ur Culture Indicated? No Urine Glucose (Negative) mg/dL Negative Cancelled Salicylates (<2.8) mg/dL 4.4 Urine Opiates Screen (Negative) Negative Urine Methadone Screen (Negative) Negative Acetaminophen (10-30) ug/mL < 2 Ur Barbiturates Screen (Negative) Negative Ur Tricyclics Screen (Negative) Negative Ur Amphetamines Screen (Negative) Negative U Benzodiazepines Scrn (Negative) Negative Urine Cocaine Screen (Negative) Negative Ur THC Screen (Negative) Positive A Ethyl Alcohol (<10) mg/dL < 3.0 COVID-19 Source SARS-CoV-2 (PCR) (Negative) Influenza Type A (PCR) (Negative) Influenza Type B (PCR) (Negative) RSV (PCR) (Negative) Range/Units 09/19/24 22:09 WBC (4.4-10.8) 10^3/uL RBC (3.93-5.22) 10^6/uL Hgb (11.2-15.7) g/dL Hct (36.0-46.0) % MCV (80-95) fL MCH (27.0-33.0) pg MCHC (32.0-36.0) % RDW (11.7-14.6) % Plt Count (130-400) 10^3/uL MPV (8.0-11.0) fL Immature Gran % % Neutrophils % % Lymphocytes % % Monocytes % % Eosinophils % % Basophils % % Nucleated RBC % (0.0-0.3) % Absolute Neutrophils (1.2-6.7) 10^3/uL Absolute Lymphocytes (1.2-3.4) 10^3/uL Absolute Monocytes (0.1-0.8) 10^3/uL Absolute Eosinophils (0.0-0.7) 10^3/uL Absolute Basophils (0.0-0.2) 10^3/uL Sodium (136-145) mmol/L Potassium (3.5-5.1) mmol/L Chloride (98-107) mmol/L Carbon Dioxide (21.0-32.0) mmol/L Anion Gap (3-11) mmol/L BUN (7-18) mg/dL Creatinine (0.55-1.02) mg/dL Est GFR (CKD-EPI 2020) (mL/min/1.73m2) Glucose (74-106) mg/dL Calcium (8.5-10.1) mg/dL Total Bilirubin (0.2-1.0) mg/dL AST (15-37) U/L ALT (14-59) U/L Alkaline Phosphatase (46-116) U/L Total Protein (6.4-8.2) g/dL Albumin (3.4-5.0) g/dL Lipase (16-77) U/L TSH (0.36-3.74) uIU/mL Urine Color (Yellow) Urine Clarity (Clear) Urine pH (5-8) Ur Specific [place] (1.005-1.025) Urine Protein (Neg-Trace) mg/dL Urine Ketones (Negative) mg/dL Urine Blood (Negative) Urine Nitrite (Negative) Urine Bilirubin (Negative) Urine Urobilinogen (Up to 0.2) mg/dL Ur Leukocyte Esterase (Negative) Urine RBC (0-2) HPF Urine WBC (0-5) HPF Ur Epithelial Cells (Negative) HPF Urine Crystals (Negative) HPF Urine Bacteria (Negative) HPF Urine Mucus (Negative) Ur Culture Indicated? Urine Glucose (Negative) mg/dL Salicylates (<2.8) mg/dL Urine Opiates Screen (Negative) Urine Methadone Screen (Negative) Acetaminophen (10-30) ug/mL Ur Barbiturates Screen (Negative) Ur Tricyclics Screen (Negative) Ur Amphetamines Screen (Negative) U Benzodiazepines Scrn (Negative) Urine Cocaine Screen (Negative) Ur THC Screen (Negative) Ethyl Alcohol (<10) mg/dL COVID-19 Source Nasopharynx SARS-CoV-2 (PCR) (Negative) Negative Influenza Type A (PCR) (Negative) Negative Influenza Type B (PCR) (Negative) Negative RSV (PCR) (Negative) Negative Quality:SDOH Health Related Social Needs: No Data to Display Sign Out Sign Out Data: Sign Out Comment: Patient awaiting [facility] eval- highly manic, endorsed SI no plan- has been abusing THC off her bipolar meds. Last updated by John Ramos PA at 09/19/24 21:55 Discharge Plan Disposition Patient Disposition: Psychiatric Hospital/Unit Specific Psychiatric Facility: [facility] Condition: Serious Discharge Details Chief Complaint: PsychEval Clinical Impression: Josie, Suicidal thoughts Primary Care Provider: Edward Kurtz ED Provider: Harris Porter Home Meds and New Rx's Prescriptions: No Action escitalopram oxalate 10 mg tablet 10 mg PO DAILY estradiol [Estrace] 0.01 % (0.1 mg/gram) cream 1 g VG .COMPLEX Qty: 42.5 4RF Rx Instructions: 1 g VG twice weekly brimonidine [Alphagan P] 0.1 % drops 1 drp ophthalmic (eye) BID Rx Instructions: administer approximately 8 hours apart acamprosate 333 mg tablet,delayed release (DR/EC) 333 mg PO BID Qty: 180 3RF Rx Instructions: administer with mid-day and evening meals prednisone 20 mg tablet 40 mg PO DAILY Qty: 10 0RF Rx Instructions: Take 2 tablets once a day for 5 days. latanoprost [Xalatan] 0.005 % drops 1 drp OP DAILY bupropion HCl 150 mg tablet extended release 24 hr 150 mg PO QAM Rx Instructions: per note dated 07/16/21 and confirmed w/ [facility]iseo Ennis [facility] quetiapine [Seroquel] 100 mg tablet 150 mg PO DAILY Rx Instructions: per note dated 07/16/21 [facility] [place] Symbicort 160-4.5 mcg/actuation HFA aerosol inhaler 1 puff IH BID Qty: 10.2 12RF losartan 25 mg tablet 25 mg PO DAILY Qty: 90 3RF albuterol sulfate [ProAir HFA] 90 mcg/actuation HFA aerosol inhaler 2 puff IH Q6H PRN (Reason: shortness of breath or wheezing) Qty: 8.5 6RF
== END 2024-09-20 15:40 ==
PROVIDERS: Physician Assistant; Emergency Provider Student in an Organized Health Care Education/Training Program; PCP Family Medicine
DX: R45.851 Suicidal ideations (principal); F30.10 Manic episode without psychotic symptoms, unspecified; Z91.148 Patient's other noncompliance with medication regimen for other reason
CPT/HCPCS: 00123; 36415; 80053; 80307; 83690; 87637; 99285; 80320; 80329; 81003; 81015; 84443; 85025

== ENCOUNTER 2024-11-22 00:19 | Outpatient (CLI) | payer MEDICAID, SELFPAY ==
--- NOTE | 2024-11-22 08:47 | DI.MAMMO_ITS ---
Exam(s) MAMMO SCREENING EXAM: MAMMO SCREENING CLINICAL HISTORY: screening,z12.39 TECHNIQUE: Mammograms were interpreted according to the usual protocol including computer analysis w [employer] CAD system, tomosynthesis and C-view imaging. COMPARISON: 2014 through 2022 FINDINGS: The breasts are composed of heterogeneously dense fibroglandular densities, Breast Density category C . No suspicious masses or suspicious microcalcifications are seen. No skin thickening or abnormal axillary lymph nodes are seen. There has been no significant change from prior exams. IMPRESSION: BI-RADS Category 1, Negative mammogram. Yearly screening mammography is recommended. Breast Density Category C, heterogeneously Dense. The mammogram demonstrates the patient's breast tissue is dense. Dense breast tissue is very common a nd is not abnormal but dense breast tissue can make it harder to find cancer on a mammogram. Also, de nse breast tissue may increase breast cancer risk. This information about the result of the mammogram report was provided to the patient to raise their awareness. Use this report when you speak with the patient about their risks for breast cancer, which includes their family history. At that time, you may recommend additional screening tests (Ultrasound or MRI) as they might be useful based on their r isk. A negative radiographic report should not delay biopsy if a dominant or clinically suspicious mass is present. Up to ten percent of cancers are not identified on mammography. A negative report may reinforce clinical impression. Adenosis and dense breasts may obscure an underlying neoplasm. False positive reports average 6 to 10%.
== END 2024-11-22 00:39 ==
LOC: DI 00:19
PROVIDERS: PCP Family Medicine; Visit Provider Nurse Practitioner Women's Health
DX: Z12.31 Encounter for screening mammogram for malignant neoplasm of breast (principal); R92.333 Mammographic heterogeneous density, bilateral breasts
CPT/HCPCS: 77063; 77067

== ENCOUNTER 2024-12-02 16:43 | Outpatient (CLI) | payer MEDICAID, SELFPAY ==
[2024-12-02 12:55] LABS: Lithium 0.4 mmol/L (0.6-1.2)
== END 2024-12-02 16:44 | disposition home or self-care (01) ==
LOC: LBO 16:43
PROVIDERS: PCP Family Medicine; Visit Provider Nurse Practitioner Psychiatric/Mental Health
DX: F31.75 Bipolar disorder, in partial remission, most recent episode depressed (principal); Z79.899 Other long term (current) drug therapy
CPT/HCPCS: 36415; 80178

== ENCOUNTER 2025-05-07 21:15 | Outpatient (REF) | payer MEDICAID, SELFPAY ==
[2025-05-07 21:29] LABS: RBC Negative HPF (0-2); WBC 0-2 HPF (0-5)
== END 2025-05-07 21:16 | disposition home or self-care (01) ==
LOC: LBN 21:15
PROVIDERS: PCP Family Medicine; Visit Provider Physician Assistant Medical
DX: R31.9 Hematuria, unspecified (principal)
CPT/HCPCS: 81015; 87086

== ENCOUNTER 2025-07-16 10:25 | Emergency (ER) | payer MEDICAID, SELFPAY ==
--- NOTE | 2025-07-16 10:15 | RT.EKG_ITS ---
APPROVED REPORT Exam: Resting ECG Reason for Exam: chest pain Patient Location: E HR:82 bpm ECG Measurements Heart Rate 82 AXIS [place] 167 P 41 QRSd 97 QRS 45 QT 377 T 56 QTc 441 Conclusion Sinus rhythm...normal P axis, V-rate 60- 99
[2025-07-16 10:37] VITALS: BP 170/96; PULSE 84; RESP 16; TEMP 36.7; O2SAT 95
[2025-07-16 11:25] LABS: Abs Immature Grans 0.03 10^3/uL (0.0-0.06); HCT 38.6 % (36.0-46.0); HGB 13.2 g/dL (11.2-15.7); Immature Grans % 0.4 %; MCH 31.1 pg (27.0-33.0); MCHC 34.2 % (32.0-36.0); MCV 91 fL (80-95); MPV 8.6 fL (8.0-11.0); Platelet Count 260 10^3/uL (130-400); RBC 4.25 10^6/uL (3.93-5.22); RDW 13.7 % (11.7-14.6); RDW-SD 45.6 fL; WBC 8.00 10^3/uL (4.4-10.8)
[2025-07-16 11:40] LABS: ALT 27 U/L (14-59); AST 24 U/L (15-37); Albumin 4.2 g/dL (3.4-5.0); Alkaline Phosphatase 100 U/L (46-116); Anion Gap 10.3 mmol/L (3-11); BUN 10 mg/dL (7-18); Bilirubin, Total 0.6 mg/dL (0.2-1.0); CO2 26.7 mmol/L (21.0-32.0); Calcium 9.3 mg/dL (8.5-10.1); Chloride 97 mmol/L (98-107); Estimated GFR 98.95 (mL/min/1.73m2); Glucose 94 mg/dL (74-106); Magnesium 1.9 mg/dL (1.8-2.4); Potassium 4.0 mmol/L (3.5-5.1); Sodium 134 mmol/L (136-145); Total Protein 7.6 g/dL (6.4-8.2); Troponin I 5 ng/L (<or=51)
[2025-07-16 12:52] LABS: Troponin I 5 ng/L (<or=51)
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
[2025-07-16 15:09] LABS: Lithium 0.8 mmol/L (0.6-1.2)
--- NOTE | 2025-07-16 15:41 | DI.RAD_ITS ---
Exam(s) XR CHEST 2V PA LATERAL EXAM: XR CHEST 2V PA LATERAL CLINICAL HISTORY: Chest pain TECHNIQUE: 2D digital imaging was performed. Two views. COMPARISON: CR,XR XR RIBS RT W PA LAT CHEST from 12/05/2020 FINDINGS: HEART: Normal size. Aorta: Not dilated. PULMONARY VASCULATURE: Normal. MEDIASTINUM: Unremarkable. LUNGS: Clear. PLEURAL SPACE: No pleural effusion or pneumothorax. BONE:Unremarkable for age. SOFT TISSUES: Unremarkable. IMPRESSION: No acute abnormality. DATA REPOSITORY: RADIATION DOSE DELIVERED:
== END 2025-07-16 16:08 | disposition home or self-care (01) ==
PROVIDERS: Emergency Provider General Practice; PCP Family Medicine
DX: R07.89 Other chest pain (principal); I10 Essential (primary) hypertension; Z87.891 Personal history of nicotine dependence; F10.90 Alcohol use, unspecified, uncomplicated; Z86.39 Personal history of other endocrine, nutritional and metabolic disease
CPT/HCPCS: 36415; 80053; 93005; 99284; 71046; 80178; 83735; 84484; 85025; 93010

== ENCOUNTER 2025-07-31 04:11 | Outpatient (CLI) | payer MEDICAID, SELFPAY ==
--- NOTE | 2025-07-31 05:00 | ETT_ITS ---
APPROVED REPORT Exam: Exercise Treadmill Patient Location: Out-Patient Room/Bed: Stress Nurse: Trixie Sawant RN Ordering Provider:BORIS YO, Contact Number: [phone] BMI: 31.70 Baseline Rhythm: Sinus Bradycardia Indications: Exertional chest pain Medical History Medical History: Atypical chest pain, asthma-COPD overlap syndrome, HTN, ex smoker, alcohol dependence in remission, glaucoma, depression, anxiety, bipolar affective disorder, vitamin D deficiency Cardiac Medications: Albuterol sulfate, lithium carbonate, losartan, quetipine, symbicort, escitalopram, aspirin, atorvastatin, nitro Allergies: Penicillins Cardiac Risk Factors: Family hx, HTN, asthma, HLD, borderline COPD, former smoker Previous Cardiac Procedures: None Pretest Chest Pain Characteristics: None Exercise History: Physically active Physical Disabilities: None Lung Sounds: Clear to auscultation Heart Sounds: Regular Stress Test Details Test: Exercise stress testing was performed using a Alberto protocol. Rest Stress HR Resting HR Supine: 57 bpm Max Heart Rate (APMHR): 160 bpm Resting HR Standin bpm Target HR (85% APMHR): 136 bpm Max HR Achieved: 138 bpm % of APMHR: 86 Recovery HR: 80 bpm HR response to stress: Normal HR response to stress BP Resting BP Supine: 138/68 mmHg Resting BP Standin/62 mmHg Max BP: 178/72 mmHg Recovery BP: 128/78 mmHg BP response to stress: Normal blood pressure response to stress. ECG Resting ECG: Sinus Rhythm Stress ECG: Sinus Bradycardia ST Change: No significant ST segment changes noted Arrhythmia: None Recovery ECG: Sinus Rhythm Recovery ST Change: No significant ST segment changes noted Recovery Arrhythmia: Rare PAC Clinical Reason for Termination: Target HR Achieved, Mod SOB Stress Symptoms: General fatigue, mod SOB Exercise duration: 09 min40 sec Highest Stage Reached: Stage 4: 4.2 mph at 16% grade. Exercise capacity: 11.25 METs Angina Score: None Flores Treadmill Score: 9.6 Rate Pressure Product: [id number] Stress ECG Conclusion 1. Resting electrocardiogram is normal 2. Patient exercised on the Alberto protocol completed workload of 11 METS 3. Normal heart rate and blood pressure response to exercise. The patient achieved 86% of maximal predicted heart rate for age 4. There was no electrocardiographic evidence of myocardial ischemia 5. There were no significant dysrhythmias Flores Treadmill Score is 9.6 which is Low risk. Stress Test Summary STAGE Time (mins) Speed (mph) Grade (%) HR BP SpO2 SYMPTOMS METS Supine 57 138/68 91% Standing 64 122/62 1 3 1.7 10 87 134/60 92% 4.5 2 6 2.5 12 101 138/68 97% 7 3 9 3.4 14 124 160/80 94% Mod SOB, fatigue 10 4 12 4.2 16 135 Mod SOB, fatigue 13 1 min recovery 121 178/72 98% 3 min recovery 83 168/84 6 min recovery 80 128/78 98% All symptoms resolved. Patient requested to stop treadmill r/t mod SOB and genral fatigue. Target HR achieved. Patient c/o mod SOB and fatigue which resolved by test end. Patient left ambulatory in no apparent distress.
== END 2025-07-31 04:31 ==
PROVIDERS: PCP Family Medicine; Visit Provider Internal Medicine Cardiovascular Disease
DX: I20.89 Other forms of angina pectoris (principal)
CPT/HCPCS: 93017

== ENCOUNTER 2025-08-19 03:18 | Outpatient (CLI) | payer MEDICAID, SELFPAY ==
[2025-08-19 09:49] LABS: Calculated LDL 98 mg/dL (<100); Cholesterol 223 mg/dL (<200); HDL Cholesterol 116 mg/dL (>or=50); Triglyceride 47 mg/dL (<150)
== END 2025-08-19 03:19 | disposition home or self-care (01) ==
LOC: LBO 03:18
PROVIDERS: PCP Family Medicine; Referring Provider Family Medicine; Visit Provider Family Medicine
DX: I10 Essential (primary) hypertension (principal)
CPT/HCPCS: 36415; 80061